=== PATIENT | female | born 2000 | race Caucasian/White ===

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

== ENCOUNTER 2024-03-23 18:38 | Emergency (ER) | payer SELFPAY ==
[~2024-03-23] VITALS: Ht 160 cm; Wt 95.5 kg
[~2024-03-23 18:38] MED LIST: DEPO-PROVE150 MG/1 M IM
[2024-03-23 18:44] VITALS: TEMP 98
[2024-03-23 22:18] VITALS: BP 124/86; PULSE 90
[2024-03-23 22:28] LABS: COLLECTION METHOD CLEAN CATCH
[2024-03-23 22:47] LABS: URINE COLOR YELLOW (YELLOW)
[2024-03-23 22:48] LABS: URINE APPEARANCE Hazy (CLEAR/HAZY); URINE BLOOD 3+ (NEGATIVE); URINE GLUCOSE Negative (NEGATIVE); URINE KETONE TRACE (NEGATIVE); URINE NITRATE Negative (NEGATIVE); URINE PROTEIN(semi-quant) Negative (NEGATIVE); URINE UROBILINOGEN 0.2 E.U/dL (0.2-1.0)
== END 2024-03-23 22:10 | disposition home or self-care (01) ==
LOC: COL.ER 18:38
PROVIDERS: Emergency Medicine
DX: O20.9 Hemorrhage in early pregnancy, unspecified (principal); Z3A.01 Less than 8 weeks gestation of pregnancy

== ENCOUNTER 2024-03-26 12:46 | Emergency (ER) | payer SELFPAY ==
[~2024-03-26] VITALS: Ht 160 cm; Wt 93.6 kg
[2024-03-26 12:52] VITALS: TEMP 98.6
[2024-03-26 13:59] LABS: COLLECTION METHOD CLEAN CATCH
[2024-03-26 14:07] LABS: URINE APPEARANCE Hazy (CLEAR/HAZY); URINE COLOR YELLOW (YELLOW)
[2024-03-26 14:08] LABS: URINE BLOOD 3+ (NEGATIVE); URINE GLUCOSE NEGATIVE (NEGATIVE); URINE KETONE NEGATIVE (NEGATIVE); URINE NITRATE NEGATIVE (NEGATIVE); URINE PROTEIN(semi-quant) 1+ (NEGATIVE); URINE UROBILINOGEN 0.2 E.U/dL (0.2-1.0)
[2024-03-26 15:14] VITALS: BP 129/63; PULSE 89
== END 2024-03-26 15:14 | disposition home or self-care (01) ==
LOC: COL.ER 12:46
PROVIDERS: Physician Assistant
DX: O03.4 Incomplete spontaneous abortion without complication (principal)